=== PATIENT | male | born 1995 | race Caucasian/White ===

== ENCOUNTER 2016-12-05 10:58 | Emergency (ER) | payer OTHER ==
[~2016-12-05] VITALS: Ht 175.3 cm; Wt 89.5 kg
[2016-12-05 11:01] VITALS: Ht 175.3 cm; Wt 89.5 kg
[2016-12-05] MEDS ORDERED: EPIN0.3P4 INJ (11:30)
[2016-12-05] MEDS ORDERED: BEN25 PO (11:30)
[2016-12-05] MEDS ORDERED: PRED20TA PO (11:30)
--- NOTE | 2016-12-05 12:51 | ERD ---
ER Documentation Chief Complaint Date/Time DATE: 12/05/16 TIME: 12:50 Chief Complaint rash x 3 days HPI Patient is a 21-year-old male with no medical problems who presents with a rash. The rash started on Sunday. The rash comes and goes. It started on his legs last night but then went away and out on his right arm. He has had it all over his body. He has had no treatment as of yet. He denies shortness of breath. He says that he ate clams on Sunday night and thinks this may have started the rash. He has no new soaps, lotions, or medications. Upon review of old medical records this is the patient's first visit to the emergency department. He does not remember the name of his primary doctor. ROS All systems reviewed and are negative except as per history of present illness. Medications Home Meds Active Scripts Diphenhydramine Hcl* (Benadryl*) 25 Mg Cap, 25 MG PO Q6 Y for ITCHING/RASH, #30 TAB Prov:ENRICO ECHOLS MD 12/05/16 Prednisone* (Prednisone*) 20 Mg Tab, 60 MG PO DAILY for 5 Days, TAB Prov:ENRICO ECHOLS MD 12/05/16 Epinephrine (Epipen 2-Oscar) 0.3 Mg/0.3 Ml Pen.injctr, 1 EA INJ ONCE Y for ALLERGIC REACTION, #1 EA Prov:ENRICO ECHOLS MD 12/05/16 Allergies Allergies: Coded Allergies: No Known Allergy (Unverified , 12/05/16) PMhx/Soc Medical and Surgical Hx: pt denies Medical Hx, pt denies Surgical Hx Hx Alcohol Use: Yes Hx Substance Use: No Hx Tobacco Use: No Smoking Status: Never smoker FmHx Family History: diabetes Physical Exam Vitals Vital Signs Date Time Temp Pulse Resp B/P Pulse Ox O2 Delivery O2 Flow Rate FiO2 12/05/16 11:01 98.0 69 18 124/75 97 Physical Exam Const: No acute distress Head: Atraumatic Eyes: Normal Conjunctiva ENT: Normal External Ears, Nose and Mouth. Neck: Full range of motion..~ No meningismus. Resp: Clear to auscultation bilaterally Cardio: Regular rate and rhythm, no murmurs Abd: Soft, non tender, non distended. Normal bowel sounds Skin: Urticaria to the right arm Back: No midline or flank tenderness Ext: No cyanosis, or edema Neur: Awake and alert Psych: Normal Mood and Affect Procedures/MDM Patient is a 21-year-old male who presents with acute urticaria. This is most likely allergic reaction and potentially from the clams that he ate on Sunday. I told him to avoid shellfish in the future until he is tested by her primary doctor or clinical academic allergist. The patient will be given a prescription for an epinephrine pen, prednisone for 5 days, and Benadryl. He has no sign of airway swelling or obstruction or difficulty with breathing. He can follow-up with his primary doctor and an clinical academic allergist. He can return for any worsening symptoms. Departure Diagnosis: Primary Impression: Urticaria Additional Impression: Rash Condition: Fair Patient Instructions: Hives Referrals: Your doctor Additional Instructions: Call your primary care doctor TOMORROW for an appointment during the next 1 WEEK.Tell the medical office secretary that you were referred from this facility.See the doctor sooner or return here if your condition worsens before your appointment time. ENRICO ECHOLS MD Dec 05, 2016 12:51
== END 2016-12-05 12:15 | disposition home or self-care (01) ==
LOC: FTE 10:58
DX: L50.9 Urticaria, unspecified (principal)
CPT/HCPCS: 99283